=== PATIENT | female | born 1965 | race Caucasian/White ===

== ENCOUNTER 2022-01-28 09:00 | Outpatient (RCR) | payer BC, SELFPAY ==
--- NOTE | 2021-12-24 15:23 | PT.OPEX ---
PT Reserve Outpatient Eval PT [facility] [place] Outpatient Eval Start: 12/19/21 14:57 Freq: Status: Active Protocol: Document 12/24/21 08:59 MARJORIE (Rec: 12/24/21 09:25 MAROJRIE [id number]) E-Signed By Megan Navarro, PT Physical Therapy Outpatient Evaluation Insurance Information Insurance Name [employer] Medical Diagnosis vaginusmus Treating Diagnosis pain Referring MD [place] Subjective Subjective Raven presents to PT with diagnosis of vaginismus. Her main compliant is severe pain with any vaginal penetration or examination. Her symptoms have been present over 22 yrs and have worsened over time. When pt was initially sexually active, she did not have pain with vaginal penetration. Her symptoms started around her late teens to 22 yo. Has had the same sexual partner. Does remember around the age of 17 yo, pt did have a yeast infection that was not diagnosed or treated for months. Symptoms were bad. Did struggle with yeast infections intermittently during her high school years/ early s and again around late s to early . Was being treated with Gentian Katerine and Diflucan which helped. Has not had a yeast infection over the last 7-8 years. Currently she is not able to tolerate anything larger than 1-2 fingers width into her vaginal - vaginal penetration, speculum/digital exam. Pain is severe. Overall bladder and bowel functions is normal. Overall good nutrition and fluid intake. Her goal for therapy is to be able to have vaginal intercourse and less pain with vaginal exams Pain Comments severe Date of Last Physician Visit 10/14/21 Objective Functional Test Performed & Score PF questionnaire Bladder function: 0/45 Bowel function: 5/34 Prolapse symptoms: 0/15 Sexual function: 12/40 Marinoff scale: 3/3 Assessment Assessment/Impression 56 yo client presents to PT with severe pain with vaginal penetration that has been present > 30 years. Pt has history multiple yeast infections that were not initially treated years prior to her onset of pain. Was able to complete evaluation of PFM. Pt denies pain with palpation of superficial PFM externally. First layer of PFM did produce a burning, irritating sensation. Overall not discomfort along B DTP but significant hypertonicity, no pain, was noted along B puborectalis, pubococcygeus, and iliococcygeus. Plan is to continue with further skilled PT services to address issues of PF pain and hypertonicity with use of MT, ther exs, NMRE . Plan of Care Rehabilitation Potential Good Physical Therapy Goals Short term goals to be achieved in 4 weeks. 1. Pelvic exam with small size speculum results in at most 2 /10 pain. 2. Pt will demonstrate decreased in overflow of muscle activity following a PFM contraction for ability to reduce hypertonicity issues. intermediate goals to be achieved in 12 weeks. 1. Pt will be independent with home program, with possible use of vaginal dilators, for symptom/pain reduction and overall reduction in PFM tone. 2. Able to tolerate intercourse with pain no greater than 2/10 3 out of 4 trials 3. Reduce Marinoff scale to 1 /3 Coordination/Communication With Referral Source Treatment Plan/Direct Interventions Joint Mobilization,Manual Therapy,Neuromuscular Re-ed, Self-Care/Home Management, Therapeutic Activities, Therapeutic Exercises Frequency/Duration up to 10 visits over the next 12 weeks Patient Will Be Discharged From Therapy Completion of LTG(s),Skills Plateau,Independent w/HEP, Independently Progressing Evaluation Billing Untimed Code Treatment Minutes 40 Complexity Moderate
== END 2022-05-21 11:04 | disposition home or self-care (01) ==
PROVIDERS: PCP Internal Medicine; Visit Provider Physician Assistant
DX: R10.2 Pelvic and perineal pain (principal); Z51.89 Encounter for other specified aftercare
CPT/HCPCS: 97110; 97112; 97140; 97162

== ENCOUNTER 2023-01-26 12:58 | Outpatient (CLI) | payer BC, SELFPAY ==
--- NOTE | 2023-01-26 13:20 | CRLHL7_ITS ---
For Patients: As a result of the Cures Act, medical imaging exams and procedure reports are released immediately into your electronic medical record. You may view this report before your referring provider. If you have questions, please contact your health care provider. BILATERAL SCREENING MAMMOGRAM WITH COMPUTER-AIDED DETECTION AND TOMOSYNTHESIS TECHNIQUE: CC and MLO views were obtained. These mammographic images have been obtained using full-field digital technique. These mammographic images were interpreted with the benefit of computer-aided detection. Breast Tomosynthesis was used in this interpretation. COMPARISON FILM: 11/17/21, 11/06/21, 10/31/20. FINDINGS: The breasts are heterogeneously dense, which may obscure small masses IMPRESSION: There is no radiographic evidence for malignancy. ASSESSMENT: BI-RADS Category 2: Benign RECOMMENDATION: Routine screening mammogram in 1 year. A lay language report of this examination will be provided to the patient. Andrea Guillen M.D. Diagnostic Radiologist [email or web address] Transcribed: 2:49 [email or web address] davsi/Dictated by: Andrea Guillen MD @ 01/27/2023 12:23:00 PM (Electronically Signed)
== END 2023-01-26 12:59 | disposition home or self-care (01) ==
LOC: MAMMO 12:59
PROVIDERS: Visit Provider Obstetrics & Gynecology
DX: Z12.31 Encounter for screening mammogram for malignant neoplasm of breast (principal); R92.2 Inconclusive mammogram
CPT/HCPCS: 77063; 77067

== ENCOUNTER 2023-11-18 09:15 | Outpatient (CLI) | payer BC, SELFPAY | END 2023-11-18 09:16 | disposition home or self-care (01) | PROVIDERS: PCP Internal Medicine; Visit Provider Obstetrics & Gynecology | DX: E78.5 Hyperlipidemia, unspecified (principal); R74.01 Elevation of levels of liver transaminase levels | CPT/HCPCS: 80061; 84450; 84460 ==

== ENCOUNTER 2024-02-01 10:16 | Outpatient (CLI) | payer BC, SELFPAY ==
--- NOTE | 2024-02-01 10:15 | CRLHL7_ITS ---
For Patients: As a result of the Century Cures Act, medical imaging exams and procedure reports are released immediately into your electronic medical record. You may view this report before your referring provider. If you have questions, please contact your health care provider. BILATERAL SCREENING MAMMOGRAM WITH COMPUTER-AIDED DETECTION AND TOMOSYNTHESIS TECHNIQUE: CC and MLO views were obtained. These mammographic images have been obtained using full-field digital technique. These mammographic images were interpreted with the benefit of computer-aided detection. Breast Tomosynthesis was used in this interpretation. COMPARISON FILM: 01/26/23, 11/17/21, 10/31/20. FINDINGS: The breasts are heterogeneously dense, which may obscure small masses IMPRESSION: There is no radiographic evidence for malignancy. ASSESSMENT: BI-RADS Category 1: Negative RECOMMENDATION: Routine screening mammogram in 1 year. A lay language report of this examination will be provided to the patient. Andrea Guillen M.D. Diagnostic Radiologist [email or web address] JAQUAN/Dictated by: Andrea Guillen MD @ 02/01/2024 10:54:00 AM (Electronically Signed)
== END 2024-02-01 10:17 | disposition home or self-care (01) ==
LOC: MAMMO 10:17
PROVIDERS: PCP Internal Medicine; Visit Provider Internal Medicine
DX: Z12.31 Encounter for screening mammogram for malignant neoplasm of breast (principal); R92.2 Inconclusive mammogram
CPT/HCPCS: 77063; 77067

== ENCOUNTER 2024-11-20 08:45 | Outpatient (CLI) | payer BC, SELFPAY | END 2024-11-20 08:46 | disposition home or self-care (01) | PROVIDERS: PCP Internal Medicine; Visit Provider Obstetrics & Gynecology | DX: Z01.419 Encounter for gynecological examination (general) (routine) without abnormal findings (principal); E78.5 Hyperlipidemia, unspecified; R74.01 Elevation of levels of liver transaminase levels; R55 Syncope and collapse; Z13.6 Encounter for screening for cardiovascular disorders | CPT/HCPCS: 80053; 80061; 84443 ==

== ENCOUNTER 2024-12-11 18:06 | Outpatient (CLI) | payer BC, SELFPAY ==
--- NOTE | 2024-12-11 18:15 | CRLHL7_ITS ---
For Patients: As a result of the Century Cures Act, medical imaging exams and procedure reports are released immediately into your electronic medical record. You may view this report before your referring provider. If you have questions, please contact your health care provider. Indication: Headaches. Dizziness Technique: Noncontrast sagittal T1, axial FLAIR, T2, diffusion weighted sequences are provided. No comparisons. Findings: The ventricles, sulci and gyri are normal size, shape and contour for age. The midline structures are centrally located with no evidence of shift. There are no suspicious intra or extra-axial fluid collections. No region of restricted diffusion. Expected flow voids in the cavernous carotids and basilar artery. Mild scattered foci of increased T2 signal within the supratentorial white matter that are non-specific. Impression: 1. No radiographic evidence of acute intracranial abnormalities. 2. Mild scattered supratentorial white matter change that is non-specific. Differential considerations include changes related to diabetes, hypertension, collagen vascular disease or migranous headaches. Dictated by Rickey Cavazos MD @ 12/11/2024 7:19:05 PM (Electronically Signed)
== END 2024-12-11 18:07 | disposition home or self-care (01) ==
LOC: MRI 18:07
PROVIDERS: PCP Internal Medicine; Visit Provider Internal Medicine
DX: R51.9 Headache, unspecified (principal); R42 Dizziness and giddiness
CPT/HCPCS: 70551

== ENCOUNTER 2025-01-22 06:26 | Outpatient (CLI) | payer BC, SELFPAY ==
--- NOTE | 2025-01-22 08:09 | P.ANES_ITS ---
Anesthesia Charges Start Date/Time Anesthesia Start Date: 01/22/25 Anesthesia Start Time: 11:37 Stop Date/Time Anesthesia Stop Date: 01/22/25 Anesthesia Stop Time: 11:56 Coding CPT Codes CPT Codes: VENUS LWR INTST SCR COLSC - 33402 ([id number]) P2 - PATIENT W/MILD SYST DISEASE, QK - CATTLE KILLER 2-4 CNCRNT ANES PROC, QX - I&C TECHNICIAN SVC W/ MD MED DIRECTION
--- NOTE | 2025-01-22 08:09 | W.ANESCHARGE ---
Anesthesia Charges Start Date/Time Anesthesia Start Date: 01/22/25 Anesthesia Start Time: 11:37 Stop Date/Time Anesthesia Stop Date: 01/22/25 Anesthesia Stop Time: 11:56 Coding CPT Codes CPT Codes: VENUS LWR INTST SCR COLSC - 24969 ([id number]) P2 - PATIENT W/MILD SYST DISEASE, QK - COMMERCIAL OR INSTITUTIONAL CLEANER 2-4 CNCRNT ANES PROC, QX - BIOINFORMATICS RESEARCH TECHNICIAN SVC W/ MD MED DIRECTION
--- NOTE | 2025-01-23 07:14 | P.ANES_ITS ---
Anesthesia Charges Start Date/Time Anesthesia Start Date: 01/22/25 Anesthesia Start Time: 11:37 Stop Date/Time Anesthesia Stop Date: 01/22/25 Anesthesia Stop Time: 11:56 Coding CPT Codes CPT Codes: VENUS LWR INTST SCR COLSC - 41403 ([id number]) P2 - PATIENT W/MILD SYST DISEASE, QK - SOLDERING MACHINE SETTER 2-4 CNCRNT ANES PROC, QX - DIRECTOR FIXED INCOME SVC W/ MD MED DIRECTION
--- NOTE | 2025-01-23 07:14 | W.ANESCHARGE ---
Anesthesia Charges Start Date/Time Anesthesia Start Date: 01/22/25 Anesthesia Start Time: 11:37 Stop Date/Time Anesthesia Stop Date: 01/22/25 Anesthesia Stop Time: 11:56 Coding CPT Codes CPT Codes: VENUS LWR INTST SCR COLSC - 13127 ([id number]) P2 - PATIENT W/MILD SYST DISEASE, QK - CHIEF DEPUTY 2-4 CNCRNT ANES PROC, QX - CARE MANAGEMENT SPECIALIST SVC W/ MD MED DIRECTION
== END 2025-01-22 06:27 | disposition home or self-care (01) ==
LOC: OP CLINIC 06:26
PROVIDERS: PCP Internal Medicine; Visit Provider Internal Medicine
DX: Z12.11 Encounter for screening for malignant neoplasm of colon (principal); Z86.0100 Personal history of colon polyps, unspecified; Z80.0 Family history of malignant neoplasm of digestive organs
CPT/HCPCS: 00812; 45378; J2704

== ENCOUNTER 2025-02-01 08:01 | Outpatient (CLI) | payer BC, SELFPAY ==
--- NOTE | 2025-02-01 08:15 | CRLHL7_ITS ---
For Patients: As a result of the Century Cures Act, medical imaging exams and procedure reports are released immediately into your electronic medical record. You may view this report before your referring provider. If you have questions, please contact your health care provider. INDICATION: BILATERAL SCREENING MAMMOGRAM, ASYMPTOMATIC 59 Y/O FEMALE COMPARISON: 02/01/2024, 01/26/2023, 11/06/2021 TECHNIQUE: Digital mammogram in CC and MLO projections including computer-aided detection (CAD) and tomosynthesis. BREAST COMPOSITION: There are scattered areas of fibroglandular density. FINDINGS: No suspicious findings. ASSESSMENT: BI-RADS 1 Negative RECOMMENDATION: Annual screening mammogram. A lay language report of this examination will be provided to the patient. Dictated by: Andrea Guillen MD @ 02/01/2025 09:11:15 (Electronically Signed)
== END 2025-02-01 08:02 | disposition home or self-care (01) ==
LOC: MAMMO 08:01
PROVIDERS: PCP Internal Medicine; Visit Provider Internal Medicine
DX: Z12.31 Encounter for screening mammogram for malignant neoplasm of breast (principal)
CPT/HCPCS: 77063; 77067